=== PATIENT | female | born 1970 | race Asian ===

== ENCOUNTER 2022-09-26 19:56 | Emergency (ER) | payer OTHER ==
[~2022-09-26] VITALS: Ht 160 cm; Wt 84.1 kg
[2022-09-26] MEDS ORDERED: ACETAMINOPHEN 325 MG TABLET PO ONE (21:30)
[2022-09-26 22:36] VITALS: BP 135/75
== END 2022-09-26 22:52 | disposition home or self-care (01) ==
LOC: EMS 19:59
DX: S50.02XA Contusion of left elbow, initial encounter (principal); M25.532 Pain in left wrist; M25.522 Pain in left elbow; E11.9 Type 2 diabetes mellitus without complications; I10 Essential (primary) hypertension; W01.0XXA Fall on same level from slipping, tripping and stumbling without subsequent striking against object, initial encounter; Y93.89 Activity, other specified; Y92.89 Other specified places as the place of occurrence of the external cause; Y99.8 Other external cause status
CPT/HCPCS: 99283

== ENCOUNTER 2023-05-13 08:05 | Day surgery (SDC) | payer OTHER ==
[~2023-05-13] VITALS: Ht 154.9 cm; Wt 81.0 kg
[~2023-05-13 08:05] MED LIST: FentaNYL CITRATE PF 100 MCG/2 ML VIAL ONE; MIDAZOLAM HCL 2 MG/2 ML VIAL ONE
[2023-05-13] MEDS ORDERED: VALS80TA2 PO (08:41)
[2023-05-13] MEDS ORDERED: GLIP10TA10 PO (08:41)
[2023-05-13] MEDS ORDERED: ATOR10TA PO (08:42)
[2023-05-13 09:26] LABS: GLUCOMETER DEV NAME(LOC) SDS.; GLUCOSE,POINT OF CARE 203 MG/DL (70-110)
[2023-05-13] MEDS ORDERED: SODIUM CHLORIDE 0.9% 1,000 ML IV ONE (10:30)
[2023-05-13] MEDS ORDERED: ONDANSETRON HCL 4 MG/2 ML VIAL ONE (11:26)
[2023-05-13] MEDS ORDERED: ONDANSETRON HCL 4 MG/2 ML VIAL IVP ONE (11:30)
[2023-05-13 11:51] LABS: GLUCOMETER DEV NAME(LOC) SDS.; GLUCOSE,POINT OF CARE 173 MG/DL (70-110)
== END 2023-05-13 13:15 | disposition home or self-care (01) ==
LOC: SURGERY 08:05
PROVIDERS: ATTEND Internal Medicine Gastroenterology
DX: Z12.11 Encounter for screening for malignant neoplasm of colon (principal); K64.9 Unspecified hemorrhoids; Z79.899 Other long term (current) drug therapy; Z98.890 Other specified postprocedural states
CPT/HCPCS: 82962; 45378; J3010; J2250; J2405